=== PATIENT | male | born 1955 | race Caucasian/White ===

== ENCOUNTER 2021-03-26 15:32 | Observation (INO) | payer OTHER, SELFPAY ==
[~2021-03-26] VITALS: Ht 182.9 cm; Wt 106.6 kg
[2021-03-26 15:32] VITALS: BP_SYST 139
[2021-03-26 16:09] LABS: BASOPHILS % (AUTO) 0.4 % (0.0-2.0); EOSINOPHILS # (AUTO) 0.1 K/uL (0.0-0.4); EOSINOPHILS % (AUTO) 0.8 % (0.0-4.0); HEMATOCRIT 39.9 % (36-54); HEMOGLOBIN 13.8 g/dL (14.0-18.0); LYMPHOCYTES # (AUTO) 2.3 K/uL (1.0-5.5); LYMPHOCYTES % (AUTO) 24.8 % (20.5-51.5); MEAN CORPUSCULAR HEMOGLOBIN 32 pg (27-31); MEAN CORPUSCULAR HGB CONC 35 % (32-36); MEAN CORPUSCULAR VOLUME 93 fL (79.0-98.0); MONOCYTES # (AUTO) 0.8 K/uL (0.0-1.0); MONOCYTES % (AUTO) 8.2 % (1.7-9.3); NEUTROPHILS % (AUTO) 65.8 % (40.0-70.0); PLATELET COUNT (AUTO) 286 K/uL (130-430); RED BLOOD CELL COUNT(AUTO) 4.31 MIL/uL (4.2-6.2); RED CELL DISTRIBUTION WIDTH 13.9 % (9.0-15.0); WHITE BLOOD COUNT (AUTO) 9.2 K/uL (4.8-10.8)
[2021-03-26 16:15] LABS: CALCIUM 9.2 mg/dL (8.4-11.0); CREATININE 1.15 mg/dL (0.55-1.30)
[2021-03-26 16:22] LABS: INR 1.1 (0.80-1.20); PROTHROMBIN TIME 11.3 SECS (9.5-12.5)
[2021-03-26 16:25] LABS: ALBUMIN 4.2 g/dL (3.4-4.8); TOTAL BILIRUBIN 0.8 mg/dL (0.0-1.0)
[2021-03-26] MEDS ORDERED: HYDR25TA4 PO (16:57)
[2021-03-26] MEDS ORDERED: IRBE150T48 PO (16:57)
[2021-03-26] MEDS ORDERED: COR25 PO (16:57)
[2021-03-26] MEDS ORDERED: ASPIRIN 325 MG TABLET PO ONE (17:00)
[2021-03-26] MEDS ORDERED: ALPRAZolam 0.25 MG TABLET PO ONE (17:00)
[2021-03-26] MEDS ORDERED: ACETAMINOPHEN 325 MG TABLET PO PRN (17:15)
[2021-03-26] MEDS ORDERED: MORPHINE 2 MG/ML INJ. SYRINGE IVP PRN (17:15)
[2021-03-26] MEDS ORDERED: ALPRAZolam 0.25 MG TABLET PO PRN (17:15)
[2021-03-26] MEDS ORDERED: POTASSIUM CHLORIDE 20 MEQ/PKT PACKET PO ONE (18:15)
[2021-03-26 19:51] VITALS: BP_SYST 132
[2021-03-26 20:04] VITALS: BP_SYST 132
[2021-03-26] MEDS ORDERED: POTASSIUM CHLORIDE 20 MEQ/PKT PACKET ONE (20:12)
[2021-03-26] MEDS ORDERED: CARVEDILOL 25 MG TABLET (COREG) PO SCH (21:00)
[2021-03-27] VITALS: BP_SYST 136
[2021-03-27 08:15] VITALS: BP_SYST 118
[2021-03-27] MEDS ORDERED: LOSARTAN POTASSIUM 50 MG TABLET (COZAAR) PO SCH ×2 (09:00)
[2021-03-27] MEDS ORDERED: HYDROCHLOROTHIAZIDE 25 MG TABLET (HCTZ) PO SCH (09:00)
[2021-03-27] MEDS ORDERED: CARVEDILOL 25 MG TABLET (COREG) PO SCH (09:00)
[2021-03-27] MEDS ORDERED: POTASSIUM CHLORIDE 20 MEQ/PKT PACKET PO SCH (09:00)
[2021-03-27] MEDS ORDERED: ASPIRIN 81 MG TAB.CHEW PO SCH (09:00)
[2021-03-27 09:01] LABS: ALANINE AMINOTRANSFERASE 31 U/L (12-78); ALBUMIN 3.7 g/dL (3.4-4.8); ANION GAP 8 (5-15); ASPARTATE AMINOTRANSFERASE 15 U/L (10-37); CALCIUM 9.3 mg/dL (8.4-11.0); CHLORIDE 103 mmol/L (98-107); CREATININE 0.91 mg/dL (0.55-1.30); GLUCOSE 114 mg/dL (70-99); POTASSIUM 4.1 mmol/L (3.5-5.1); SODIUM SERUM 141 mmol/L (136-145); THYROID STIMULATING HORMONE 1.04 uIu/mL (0.36-3.74); TOTAL BILIRUBIN 0.8 mg/dL (0.0-1.0); UREA NITROGEN, BLOOD 16 mg/dL (8-21)
[2021-03-27 09:28] LABS: GFR AFRICAN AMERICAN 108 mL/min (>90)
[2021-03-27] MEDS ORDERED: ASA81 PO (10:08)
[2021-03-27 10:23] LABS: CHOLESTEROL 131 mg/dL (<200); HDL CHOLESTEROL 38 mg/dL (>45); LDL CHOLESTEROL 84 mg/dL (<100); TRIGLYCERIDES 114 mg/dL (30-150)
[2021-03-27 12:00] VITALS: BP_SYST 116
[2021-03-27 14:06] VITALS: BP_SYST 117
== END 2021-03-27 14:50 | disposition home or self-care (01) ==
LOC: SED 15:32 → STU 17:10
PROVIDERS: ADMIT Internal Medicine Cardiovascular Disease; ATTEND Internal Medicine Cardiovascular Disease
DX: R07.89 Other chest pain (principal); Z20.822 Contact with and (suspected) exposure to COVID-19; I20.9 Angina pectoris, unspecified; I10 Essential (primary) hypertension; E87.6 Hypokalemia; F41.9 Anxiety disorder, unspecified; Z79.82 Long term (current) use of aspirin; Z79.899 Other long term (current) drug therapy; Z95.0 Presence of cardiac pacemaker
CPT/HCPCS: 36415 ×2; 71045; 80053 ×2; 80061; 83735; 84443; 84484 ×2; 85025; 85610; 85730; 87426; 93005 ×2; 99285; G0378 ×2